=== PATIENT | male | born 1990 | race Caucasian/White ===

== ENCOUNTER 2018-07-13 21:23 | Emergency (ER) | payer MEDICAID ==
[2018-07-13] MEDS ORDERED: NS 1,000 ML IV ONE (21:32)
--- NOTE | 2018-07-13 21:56 | EDPHY ---
H & P Stated Complaint: L arm pain after laying on it, ETOH from the [facility] Time Seen by Provider: 07/13/18 21:51 HPI/ROS: CHIEF COMPLAINT: Left arm pain after sleeping on it HISTORY OF PRESENT ILLNESS: Patient is a 27-year-old alcoholic man who [facility] He woke up about an hour ago and complained of pain in his left arm. He continues to have full function and movement of his arm. He denies other complaints. Severity: Mild Modifying factors: Improving with time REVIEW OF SYSTEMS: Constitutional: denies: chills, fever, recent illness, recent injury EENTM: denies: blurred vision, double vision, nose congestion Respiratory: denies: cough, shortness of breath Cardiac: denies: chest pain, irregular heart rate, lightheadedness, palpitations Gastrointestinal/Abdominal: denies: abdominal pain, diarrhea, nausea, vomiting, blood streaked stools Genitourinary: denies: dysuria, frequency, hematuria, pain Musculoskeletal: See HPI Skin: denies: lesions, rash, jaundice, bruising Neurological: denies: headache, numbness, paresthesia, tingling, dizziness, weakness Hematologic/Lymphatic: denies: blood clots, easy bleeding, easy bruising Immunologic/allergic: denies: HIV/AIDS, transplant 10 systems reviewed and negative except as noted EXAM: GENERAL: Well-appearing, well-nourished and in no acute distress. HEAD: Atraumatic, normocephalic. EYES: Pupils equal round and reactive to light, extraocular movements intact, sclera anicteric, conjunctiva are normal. ENT: TMs normal, nares patent, oropharynx clear without exudates. Moist mucous membranes. NECK: Normal range of motion, supple without lymphadenopathy or JVD. LUNGS: Breath sounds clear to auscultation bilaterally and equal. No wheezes rales or rhonchi. HEART: Regular rate and rhythm without murmurs, rubs or gallops. ABDOMEN: Soft, nontender, normoactive bowel sounds. No guarding, no rebound. No masses appreciated. BACK: No CVA tenderness, no spinal tenderness, step-offs or deformities EXTREMITIES: Normal movement and strength in all extremities. Normal flex and extend sign of the wrist. Normal flexion of the arm. Normal extension of the arm. Normal abduction of thumb. Normal palmar flexion. Normal spreading and abducting of fingers NEUROLOGICAL: Cranial nerves II through XII grossly intact. Normal speech, normal gait. 5/5 strength, normal movement in all extremities, normal sensation , normal reflexes PSYCH: Normal mood, normal affect. SKIN: Warm, dry, normal turgor, no visible rashes or lesions. Source: Patient Exam Limitations: No limitations - Personal History Current Tetanus/Diphtheria Vaccine: Unsure Current Tetanus Diphtheria and Acellular Pertussis (TDAP): Unsure - Medical/Surgical History Hx Asthma: No Hx Chronic Respiratory Disease: No Hx Diabetes: No Hx Cardiac Disease: No Hx Renal Disease: No Hx Cirrhosis: No Hx Alcoholism: Yes Hx HIV/AIDS: No Hx Splenectomy or Spleen Trauma: No Other PMH: alcoholism - Family History Significant Family History: No pertinent family hx - Social History Smoking Status: Current every day smoker Alcohol Use: Heavy Constitutional: Initial Vital Signs Temperature (C) 36.7 C 07/13/18 21:28 Heart Rate 114 H 07/13/18 21:28 Respiratory Rate 16 07/13/18 21:28 Blood Pressure 168/117 H 07/13/18 21:28 O2 Sat (%) 95 07/13/18 21:28 O2 Delivery Mode Room Air Allergies/Adverse Reactions: No Known Allergies Allergy (Unverified 07/13/18 21:28) Medical Decision Making ED Course/Re-evaluation: The patient has pain in his arm but has totally normal exam. Normal strength and normal range of motion. He states that it is improving. He had a mild compression of star most sleeping but no obvious palsy. [facility]po him there. Differential Diagnosis: Partial list of the Differential diagnosis considered include but were not limited to; intoxication, arm pain, peripheral neuropathy and although unlikely based on the history and physical exam, I also considered cervical spine injury, infection, trauma. - Data Points Medications Given: Discontinued Medications Sodium Chloride (Ns) 1,000 mls @ 0 mls/hr IV ONCE ONE; Wide Open PRN Reason: Protocol Stop: 07/13/18 21:33 Last Admin: 07/13/18 21:42 Dose: 1,000 mls Departure - Departure Disposition: Home, Routine, Self-Care Clinical Impression: Left arm pain Alcohol intoxication Qualifiers: Complication of substance-induced condition: uncomplicated Qualified Code(s): F10.920 - Alcohol use, unspecified with intoxication, uncomplicated Condition: Good Instructions: Abuse of Alcohol (ED), Arm Pain (ED) Referrals: NONE *PRIMARY CARE P,. [Primary Care Provider] - As per Instructions [facility] [Clinic] - As per Instructions
[2018-07-13 22:06] VITALS: BP 156/99
== END 2018-07-13 22:05 | disposition home or self-care (01) ==
DX: M79.602 Pain in left arm (principal); E86.9 Volume depletion, unspecified; F10.20 Alcohol dependence, uncomplicated